=== PATIENT | male | born 1940 | race Caucasian/White ===

== ENCOUNTER 2017-11-04 01:18 | Emergency (ER) | payer MEDICARE, OTHER, MEDICAID | END 2017-11-04 03:21 | disposition home or self-care (01) | LOC: E/R 01:18 | DX: R04.0 Epistaxis (principal) | CPT/HCPCS: 30901; 99283-25 ==

== ENCOUNTER 2018-10-24 17:54 | Inpatient (IN) | payer MEDICARE, OTHER ==
[2018-10-24] MEDS: SODIUM CHLORIDE 0.9% 1L BAG IV* (17:55)
[2018-10-24 18:42] LABS: ADD MAN DIFF? NO
[2018-10-24 18:47] LABS: BASOPHILS % 0.4 % (0.0-2.0); EOSINOPHILS % 0.3 % (0.0-7.0); HEMOGLOBIN 14.7 g/dl (14.0-18.0); LYMPHOCYTES # 0.9 10^3/ul (0.8-2.9); LYMPHOCYTES % 8.2 % (15.0-51.0); MEAN CORPUSCULAR HGB CONC 32.7 g/dl (32.0-37.0); MEAN CORPUSCULAR VOLUME 94.9 fl (82.0-101.0); MEAN PLATELET VOLUME 9.6 fl (7.4-10.4); MONOCYTE # 0.9 10^3/ul (0.3-0.9); MONOCYTES % 7.9 % (0.0-11.0); NEUTROPHILS % 82.7 % (39.0-77.0); PLATELET COUNT 169 10^3/UL (140-415); RED BLOOD COUNT 4.74 10^6/ul (4.70-6.10); RED CELL DISTRIBUTION WIDTH 12.4 % (11.5-14.5)
[2018-10-24 18:47] LABS: WHITE BLOOD COUNT 10.8 10^3/ul (4.8-10.8)
[2018-10-24 19:05] LABS: ALANINE AMINOTRANSFERASE 13 IU/L (13-69); ALBUMIN 3.7 g/dl (3.3-4.9); ALBUMIN/GLOBULIN RATIO 1.05; ALKALINE PHOSPHATASE 50 IU/L (42-121); ANION GAP 8 (5-13); ASPARTATE AMINO TRANSFERASE 22 IU/L (15-46); BILIRUBIN,INDIRECT 1.3 mg/dl (0-1.1); BILIRUBIN,TOTAL 1.3 mg/dl (0.2-1.3); BLOOD UREA NITROGEN 17 mg/dl (7-20); CALCIUM 8.9 mg/dl (8.4-10.2); CARBON DIOXIDE 30 mmol/L (21-31); CHLORIDE 99 mmol/L (97-110); CREATININE 0.74 mg/dl (0.61-1.24); GLUCOSE 106 mg/dl (70-220); SODIUM 137 mmol/L (135-144); TOTAL PROTEIN 7.2 g/dl (6.1-8.1)
[2018-10-24 19:16] LABS: TROPONIN-I < 0.012 ng/ml (0.000-0.120)
[2018-10-24 19:24] LABS: ADD UMIC YES; UR ASCORBIC ACID NEGATIVE (NEGATIVE); UR BILIRUBIN (Dip) NEGATIVE (NEGATIVE); UR BLOOD (Dip) 1+ mg/dL (NEGATIVE); UR CLARITY CLEAR (CLEAR); UR COLOR YELLOW (YELLOW); UR GLUCOSE (Dip) NEGATIVE (NEGATIVE); UR KETONES (Dip) NEGATIVE (NEGATIVE); UR LEUKOCYTE ESTERASE (Dip) NEGATIVE Leu/ul (NEGATIVE); UR MUCUS FEW /HPF (NONE SEEN); UR NITRITE (Dip) NEGATIVE (NEGATIVE); UR RBC 3 /HPF (0-5); UR SPECIFIC GRAVITY (Dip) 1.018 (1.003-1.030); UR TOTAL PROTEIN (Dip) NEGATIVE (NEGATIVE); UR UROBILINOGEN (Dip) NEGATIVE (NEGATIVE); UR WBC 1 /HPF (0-5)
[2018-10-24 20:05] LABS: INR 1.16; PROTIME 14.9 Sec (11.9-14.9); PT RATIO 1.2
[2018-10-24 20:06] LABS: PARTIAL THROMBOPLASTIN TIME 31.3 Sec (23.0-35.0)
[2018-10-24 20:19] LABS: B-TYPE NATRIURETIC PEPTIDE 575 PG/ML (0-450)
[2018-10-24 20:31] LABS: LACTIC ACID 1.4 mmol/L (0.5-2.0)
[2018-10-24] MEDS: FUROSEMIDE 20 MG INJ IV (20:57)
[2018-10-24] MEDS: LEVOFLOXACIN 750MG/D5W (PMX) 150 ML IVPB (21:01)
[2018-10-25] MEDS ORDERED: ACETAMINOPHEN 325 MG TAB PO (02:00)
[2018-10-25] MEDS ORDERED: HYDROCODONE/APAP (5/325) TAB PO (02:00)
[2018-10-25] MEDS ORDERED: ONDANSETRON 4 MG INJ IV (02:00)
[2018-10-25] MEDS ORDERED: ALBUTEROL/IPRATROPIUM (NEB) 3 ML AMP HHN (02:00)
[2018-10-25] MEDS ORDERED: NACL 0.9% 3 ML SYG IV (02:00)
[2018-10-25] MEDS: FUROSEMIDE 20 MG TAB PO (05:32)
[2018-10-25 05:33] LABS: ADD MAN DIFF? NO
[2018-10-25 05:42] LABS: WHITE BLOOD COUNT 8.3 10^3/ul (4.8-10.8)
[2018-10-25 05:42] LABS: BASOPHILS % 0.5 % (0.0-2.0); EOSINOPHILS # 0.2 10^3/ul (0.0-0.5); EOSINOPHILS % 1.9 % (0.0-7.0); HEMATOCRIT 44.9 % (42.0-52.0); HEMOGLOBIN 14.9 g/dl (14.0-18.0); LYMPHOCYTES % 12.5 % (15.0-51.0); MEAN CORPUSCULAR HEMOGLOBIN 31.8 pg (29.0-33.0); MEAN CORPUSCULAR HGB CONC 33.2 g/dl (32.0-37.0); MEAN CORPUSCULAR VOLUME 95.9 fl (82.0-101.0); MEAN PLATELET VOLUME 9.8 fl (7.4-10.4); MONOCYTE # 0.8 10^3/ul (0.3-0.9); MONOCYTES % 10.1 % (0.0-11.0); NEUTROPHIL # 6.2 10^3/ul (1.6-7.5); NEUTROPHILS % 74.8 % (39.0-77.0); PLATELET COUNT 148 10^3/UL (140-415); RED BLOOD COUNT 4.68 10^6/ul (4.70-6.10); RED CELL DISTRIBUTION WIDTH 12.9 % (11.5-14.5)
[2018-10-25 06:12] LABS: ALANINE AMINOTRANSFERASE 11 IU/L (13-69); ALBUMIN 3.8 g/dl (3.3-4.9); ALBUMIN/GLOBULIN RATIO 1.11; ALKALINE PHOSPHATASE 50 IU/L (42-121); ANION GAP 7 (5-13); ASPARTATE AMINO TRANSFERASE 24 IU/L (15-46); BILIRUBIN,INDIRECT 1.4 mg/dl (0-1.1); BILIRUBIN,TOTAL 1.4 mg/dl (0.2-1.3); BLOOD UREA NITROGEN 19 mg/dl (7-20); CALCIUM 8.8 mg/dl (8.4-10.2); CARBON DIOXIDE 33 mmol/L (21-31); CHLORIDE 98 mmol/L (97-110); CREATININE 0.91 mg/dl (0.61-1.24); GLUCOSE 95 mg/dl (70-220); MAGNESIUM 1.9 mg/dl (1.7-2.5); POTASSIUM 3.9 mmol/L (3.5-5.1); SODIUM 138 mmol/L (135-144); TOTAL PROTEIN 7.2 g/dl (6.1-8.1)
[2018-10-25] MEDS: LOSARTAN 50 MG TAB PO (08:40)
[2018-10-25] MEDS: CILOSTAZOL 100 MG TAB PO (08:40)
[2018-10-25] MEDS: AMLODIPINE 5 MG TAB PO (08:40)
[2018-10-25] MEDS: TAMSULOSIN (SR) 0.4 MG CAP PO (08:41)
[2018-10-25] MEDS: LEVOFLOXACIN 500MG/D5W (PMX) 100 ML IVPB (08:41)
[2018-10-25] MEDS: ASPIRIN (EC) 81 MG TAB PO (08:41)
[2018-10-25] MEDS: DOCUSATE SODIUM 250 MG CAP PO ×2 (08:41→21:50)
[2018-10-25] MEDS: HYDROCHLOROTHIAZIDE 12.5 MG CAP PO (08:41)
[2018-10-25] MEDS ORDERED: NON-FORMULARY/PATIENT OWN MED (Olmesartan-Amlodipine-HCTZ (Tribenzor) 1 TAB) PO (09:00)
[2018-10-25] MEDS ORDERED: LEVOFLOXACIN 500MG/D5W (PMX) 100 ML IVPB (09:00)
[2018-10-25] MEDS: HEPARIN 5,000 UNIT/1 ML VIAL SC ×2 (09:00→22:20)
[2018-10-25] MEDS: INFLUENZA VIRUS VACCINE 0.5 ML (DISPENSING) IM* (12:16)
[2018-10-25 12:44] LABS: TROPONIN-I < 0.012 ng/ml (0.000-0.120)
[2018-10-25] MEDS: FUROSEMIDE 20 MG INJ IV (17:07)
[2018-10-25] MEDS ORDERED: POLYETHYLENE GLYCOL 17 GM PACKET (21:47)
[2018-10-25] MEDS: ATORVASTATIN 10 MG TAB PO (21:51)
[2018-10-26 05:17] LABS: ADD MAN DIFF? NO
[2018-10-26 05:21] LABS: WHITE BLOOD COUNT 7.2 10^3/ul (4.8-10.8)
[2018-10-26 05:21] LABS: BASOPHILS % 0.4 % (0.0-2.0); EOSINOPHILS # 0.3 10^3/ul (0.0-0.5); EOSINOPHILS % 3.5 % (0.0-7.0); HEMATOCRIT 45.7 % (42.0-52.0); HEMOGLOBIN 14.9 g/dl (14.0-18.0); LYMPHOCYTES # 1.3 10^3/ul (0.8-2.9); LYMPHOCYTES % 18.3 % (15.0-51.0); MEAN CORPUSCULAR HEMOGLOBIN 31.3 pg (29.0-33.0); MEAN CORPUSCULAR HGB CONC 32.6 g/dl (32.0-37.0); MEAN PLATELET VOLUME 10.1 fl (7.4-10.4); MONOCYTE # 0.8 10^3/ul (0.3-0.9); MONOCYTES % 11.3 % (0.0-11.0); NEUTROPHIL # 4.8 10^3/ul (1.6-7.5); NEUTROPHILS % 66.2 % (39.0-77.0); PLATELET COUNT 160 10^3/UL (140-415); RED BLOOD COUNT 4.76 10^6/ul (4.70-6.10); RED CELL DISTRIBUTION WIDTH 12.8 % (11.5-14.5)
[2018-10-26 05:48] LABS: B-TYPE NATRIURETIC PEPTIDE 154 PG/ML (0-450)
[2018-10-26 05:53] LABS: ANION GAP 8 (5-13); BLOOD UREA NITROGEN 26 mg/dl (7-20); CALCIUM 8.9 mg/dl (8.4-10.2); CARBON DIOXIDE 37 mmol/L (21-31); CHLORIDE 97 mmol/L (97-110); CREATININE 0.99 mg/dl (0.61-1.24); GLUCOSE 100 mg/dl (70-220); PHOSPHORUS 4.7 mg/dl (2.5-4.9); POTASSIUM 4.2 mmol/L (3.5-5.1); SODIUM 142 mmol/L (135-144)
[2018-10-26] MEDS: POLYETHYLENE GLYCOL 17 GM PACKET PO (06:07)
[2018-10-26] MEDS: FUROSEMIDE 20 MG INJ IV (06:08)
[2018-10-26] MEDS: ASPIRIN (EC) 81 MG TAB PO (08:15)
[2018-10-26] MEDS: TAMSULOSIN (SR) 0.4 MG CAP PO (08:15)
[2018-10-26] MEDS: CILOSTAZOL 100 MG TAB PO (08:16)
[2018-10-26] MEDS: HYDROCHLOROTHIAZIDE 12.5 MG CAP PO (08:16)
[2018-10-26] MEDS: AMLODIPINE 5 MG TAB PO (08:16)
[2018-10-26] MEDS: DOCUSATE SODIUM 250 MG CAP PO ×2 (08:16→21:44)
[2018-10-26] MEDS: LOSARTAN 50 MG TAB PO (08:16)
[2018-10-26] MEDS: LEVOFLOXACIN 500MG/D5W (PMX) 100 ML IVPB (08:17)
[2018-10-26] MEDS: HEPARIN 5,000 UNIT/1 ML VIAL SC ×2 (08:24→21:50)
[2018-10-26 15:53] LABS: HEMOGLOBIN A1C 5.1 % (0-5.9)
[2018-10-26 15:55] LABS: CHOL/HDL RATIO 3.7 RATIO; HDL CHOLESTEROL 42 mg/dl (31-75); LDL CHOLESTEROL,CALCULATED 86 mg/dl; TRIGLYCERIDES 140 mg/dl (0-149)
[2018-10-26 15:55] LABS: CHOLESTEROL 156 mg/dl (100-200)
[2018-10-26 16:27] LABS: AADO2 Arterial 26.2 mmHg (7.0-24.0); Allen Test ACCEPTAB; Arterial Base Excess 5.8 mmol/L (-3.0-3); Arterial Blood Gas Oxygen Sat 86.9 mmHG (95.0-100.0); Arterial COHb 1.3 % (0.0-3.0); Arterial Fraction of Oxyhgb 85.6 % (93.0-99.0); Arterial HCO3 32.6 mmol/L (22.0-26.0); Arterial MetHb 0.2 % (0.0-1.5); Arterial pCO2 55.3 mmhg (35-45); MODE ROOM AIR; Site Right Radial
[2018-10-26] MEDS: SOD CHLORIDE 0.9% 100 ML (17:52)
[2018-10-26] MEDS: IOHEXOL 100 ML (17:52)
[2018-10-26] MEDS ORDERED: FUROSEMIDE 40 MG INJ IV (18:00)
[2018-10-26] MEDS: ALBUTEROL/IPRATROPIUM (NEB) 3 ML AMP HHN (21:30)
[2018-10-26] MEDS: ATORVASTATIN 10 MG TAB PO (21:44)
[2018-10-27 06:04] LABS: ADD MAN DIFF? NO
[2018-10-27 06:08] LABS: WHITE BLOOD COUNT 7.1 10^3/ul (4.8-10.8)
[2018-10-27 06:08] LABS: BASOPHIL # 0.1 10^3/ul (0.0-0.1); BASOPHILS % 0.7 % (0.0-2.0); EOSINOPHILS # 0.2 10^3/ul (0.0-0.5); EOSINOPHILS % 3.1 % (0.0-7.0); HEMATOCRIT 46.9 % (42.0-52.0); LYMPHOCYTES # 1.2 10^3/ul (0.8-2.9); LYMPHOCYTES % 16.4 % (15.0-51.0); MEAN CORPUSCULAR VOLUME 96.9 fl (82.0-101.0); MEAN PLATELET VOLUME 9.9 fl (7.4-10.4); MONOCYTE # 0.7 10^3/ul (0.3-0.9); MONOCYTES % 10.1 % (0.0-11.0); NEUTROPHIL # 4.9 10^3/ul (1.6-7.5); NEUTROPHILS % 69.4 % (39.0-77.0); PLATELET COUNT 178 10^3/UL (140-415); RED BLOOD COUNT 4.84 10^6/ul (4.70-6.10); RED CELL DISTRIBUTION WIDTH 12.7 % (11.5-14.5)
[2018-10-27 06:33] LABS: PHOSPHORUS 4.5 mg/dl (2.5-4.9)
[2018-10-27 06:35] LABS: ALANINE AMINOTRANSFERASE 16 IU/L (13-69); ALBUMIN 3.8 g/dl (3.3-4.9); ALBUMIN/GLOBULIN RATIO 1.11; ALKALINE PHOSPHATASE 45 IU/L (42-121); ANION GAP 9 (5-13); ASPARTATE AMINO TRANSFERASE 22 IU/L (15-46); BILIRUBIN,INDIRECT 0.5 mg/dl (0-1.1); BILIRUBIN,TOTAL 0.5 mg/dl (0.2-1.3); BLOOD UREA NITROGEN 30 mg/dl (7-20); CARBON DIOXIDE 36 mmol/L (21-31); CHLORIDE 97 mmol/L (97-110); CREATININE 1.02 mg/dl (0.61-1.24); GLUCOSE 124 mg/dl (70-220); POTASSIUM 4.3 mmol/L (3.5-5.1); SODIUM 142 mmol/L (135-144); TOTAL PROTEIN 7.2 g/dl (6.1-8.1)
[2018-10-27 08:02] LABS: B-TYPE NATRIURETIC PEPTIDE 72 PG/ML (0-450)
[2018-10-27] MEDS: LEVOFLOXACIN 500MG/D5W (PMX) 100 ML IVPB (08:36)
[2018-10-27] MEDS: ASPIRIN (EC) 81 MG TAB PO (08:38)
[2018-10-27] MEDS: CILOSTAZOL 100 MG TAB PO (08:39)
[2018-10-27] MEDS: LOSARTAN 50 MG TAB PO (08:45)
[2018-10-27] MEDS: HYDROCHLOROTHIAZIDE 12.5 MG CAP PO (08:46)
[2018-10-27] MEDS: ALBUTEROL/IPRATROPIUM (NEB) 3 ML AMP HHN ×3 (08:53→22:11)
[2018-10-27] MEDS: HEPARIN 5,000 UNIT/1 ML VIAL SC ×2 (08:56→21:48)
[2018-10-27] MEDS: AMLODIPINE 2.5 MG TAB PO (09:00)
[2018-10-27] MEDS ORDERED: FUROSEMIDE 20 MG TAB PO (09:00)
[2018-10-27] MEDS: AMLODIPINE 5 MG TAB PO (09:00)
[2018-10-27] MEDS: DOCUSATE SODIUM 250 MG CAP PO ×2 (09:00→21:52)
[2018-10-27] MEDS: TAMSULOSIN (SR) 0.4 MG CAP PO (09:00)
[2018-10-27] MEDS: METHYLPREDNISOLONE 40 MG INJ IV ×2 (16:01→21:41)
[2018-10-27] MEDS: FAMOTIDINE 20 MG TAB PO (21:40)
[2018-10-27] MEDS: ATORVASTATIN 10 MG TAB PO (21:41)
[2018-10-28 03:27] LABS: ANION GAP 7 (5-13); BLOOD UREA NITROGEN 33 mg/dl (7-20); CALCIUM 9.5 mg/dl (8.4-10.2); CARBON DIOXIDE 33 mmol/L (21-31); CHLORIDE 102 mmol/L (97-110); CREATININE 0.86 mg/dl (0.61-1.24); GLUCOSE 171 mg/dl (70-220); POTASSIUM 4.7 mmol/L (3.5-5.1); SODIUM 142 mmol/L (135-144)
[2018-10-28 06:01] LABS: ADD MAN DIFF? NO
[2018-10-28 06:04] LABS: WHITE BLOOD COUNT 4.8 10^3/ul (4.8-10.8)
[2018-10-28 06:04] LABS: ABNORMAL IP MESSAGE 1; BASOPHILS % 0.2 % (0.0-2.0); HEMATOCRIT 46.5 % (42.0-52.0); LYMPHOCYTES # 0.4 10^3/ul (0.8-2.9); LYMPHOCYTES % 8.3 % (15.0-51.0); MEAN CORPUSCULAR HEMOGLOBIN 31.3 pg (29.0-33.0); MEAN CORPUSCULAR HGB CONC 32.3 g/dl (32.0-37.0); MEAN CORPUSCULAR VOLUME 96.9 fl (82.0-101.0); MEAN PLATELET VOLUME 9.9 fl (7.4-10.4); MONOCYTE # 0.1 10^3/ul (0.3-0.9); MONOCYTES % 1.9 % (0.0-11.0); NEUTROPHIL # 4.3 10^3/ul (1.6-7.5); NEUTROPHILS % 89.2 % (39.0-77.0); PLATELET COUNT 196 10^3/UL (140-415); POSITIVE DIFF @See below; RED CELL DISTRIBUTION WIDTH 12.8 % (11.5-14.5)
[2018-10-28 06:35] LABS: PHOSPHORUS 4.3 mg/dl (2.5-4.9)
[2018-10-28 06:35] LABS: ANION GAP 9 (5-13); BLOOD UREA NITROGEN 31 mg/dl (7-20); CALCIUM 9.3 mg/dl (8.4-10.2); CARBON DIOXIDE 33 mmol/L (21-31); CHLORIDE 100 mmol/L (97-110); CREATININE 0.75 mg/dl (0.61-1.24); GLUCOSE 147 mg/dl (70-220); MAGNESIUM 2.1 mg/dl (1.7-2.5); POTASSIUM 4.8 mmol/L (3.5-5.1); SODIUM 142 mmol/L (135-144)
[2018-10-28] MEDS: METHYLPREDNISOLONE 40 MG INJ IV ×3 (06:36→21:23)
[2018-10-28] MEDS: LEVOFLOXACIN 500 MG TAB PO (06:36)
[2018-10-28] MEDS: HYDROCHLOROTHIAZIDE 12.5 MG CAP PO (08:33)
[2018-10-28] MEDS: LOSARTAN 50 MG TAB PO (08:34)
[2018-10-28] MEDS: CILOSTAZOL 100 MG TAB PO (08:35)
[2018-10-28] MEDS: AMLODIPINE 2.5 MG TAB PO (08:35)
[2018-10-28] MEDS: DOCUSATE SODIUM 250 MG CAP PO ×2 (08:36→20:51)
[2018-10-28] MEDS: ASPIRIN (EC) 81 MG TAB PO (08:36)
[2018-10-28] MEDS: TAMSULOSIN (SR) 0.4 MG CAP PO (08:36)
[2018-10-28] MEDS: HEPARIN 5,000 UNIT/1 ML VIAL SC ×2 (08:46→21:03)
[2018-10-28] MEDS: ALBUTEROL/IPRATROPIUM (NEB) 3 ML AMP HHN ×3 (09:44→20:11)
[2018-10-28] MEDS: FAMOTIDINE 20 MG TAB PO (20:51)
[2018-10-28] MEDS: ATORVASTATIN 10 MG TAB PO (20:51)
[2018-10-29] MEDS: METHYLPREDNISOLONE 40 MG INJ IV (05:36)
[2018-10-29] MEDS: LEVOFLOXACIN 500 MG TAB PO (05:36)
[2018-10-29] MEDS: TAMSULOSIN (SR) 0.4 MG CAP PO (08:15)
[2018-10-29] MEDS: DOCUSATE SODIUM 250 MG CAP PO (08:15)
[2018-10-29] MEDS: AMLODIPINE 2.5 MG TAB PO (08:16)
[2018-10-29] MEDS: HYDROCHLOROTHIAZIDE 12.5 MG CAP PO (08:16)
[2018-10-29] MEDS: LOSARTAN 50 MG TAB PO (08:17)
[2018-10-29] MEDS: ASPIRIN (EC) 81 MG TAB PO (08:17)
[2018-10-29] MEDS: CILOSTAZOL 100 MG TAB PO (08:17)
[2018-10-29] MEDS: HEPARIN 5,000 UNIT/1 ML VIAL SC (08:27)
[2018-10-29] MEDS: ALBUTEROL/IPRATROPIUM (NEB) 3 ML AMP HHN ×2 (08:55→15:11)
== END 2018-10-29 18:11 | disposition home or self-care (01) | DRG 193 ==
LOC: E/R 17:54 → 6WM 20:13
DX: J18.9 Pneumonia, unspecified organism (principal); J96.01 Acute respiratory failure with hypoxia; J96.02 Acute respiratory failure with hypercapnia; Z68.41 Body mass index [BMI] 40.0-44.9, adult; J84.9 Interstitial pulmonary disease, unspecified; J44.0 Chronic obstructive pulmonary disease with (acute) lower respiratory infection; J20.9 Acute bronchitis, unspecified; I10 Essential (primary) hypertension; N40.0 Benign prostatic hyperplasia without lower urinary tract symptoms; G20 Parkinson's disease; M79.671 Pain in right foot; E78.5 Hyperlipidemia, unspecified; E66.01 Morbid (severe) obesity due to excess calories; I27.20 Pulmonary hypertension, unspecified
CPT/HCPCS: 36415; 36600; 71045; 71275; 80048; 80053; 80061; 81001; 82803; 83036; 83605; 83735; 83880; 84100; 84443; 84484; 85025; 85610; 85730; 87040; 87070; 87086; 87400; 87880; 93005; 93306; 93922; 93970; 94640; 99285-25